=== PATIENT | male | born 1935 | race Caucasian/White ===

== ENCOUNTER 2017-03-24 06:21 | Day surgery (SDC) | END 2017-03-24 13:00 | disposition home or self-care (01) | DX: I25.10 Atherosclerotic heart disease of native coronary artery without angina pectoris (principal); I35.0 Nonrheumatic aortic (valve) stenosis; I50.9 Heart failure, unspecified | CPT/HCPCS: 80048; 82962; 85025; 85610; 85730; 93005; 93458; C1887; G0278; J1644; J2250; J3010; Q9967 ==